=== PATIENT | male | born 1965 | race Caucasian/White ===

== ENCOUNTER 2024-03-01 18:01 | Emergency (ER) | payer MEDICAID ==
[2024-03-01] MEDS: HYDROmorphone 1 MG/ML Syringe SUBCUT ONE (18:38)
[2024-03-01 19:46] LABS: BASOPHILS PERCENT AUTO 0.8 % (0.2-1.2); EOSINOPHILS ABSOLUTE AUTO 0.3 x10^3/uL (0.0-0.5); EOSINOPHILS PERCENT AUTO 5.2 % (0.0-4.0); HEMATOCRIT 42.6 % (40.0-52.0); HEMOGLOBIN 14.3 g/dL (14.0-18.0); IMMATURE GRAN ABSOLUTE AUTO 0.01 x10^3/uL (0.00-0.07); LYMPHOCYTES ABSOLUTE AUTO 2.2 x10^3/uL (1.0-4.8); LYMPHOCYTES PERCENT AUTO 43.6 % (25.0-50.0); MEAN CORPUSCULAR HGB CONC 33.6 g/dL (32.0-36.0); MEAN CORPUSCULAR VOLUME 86.4 fL (78.0-93.0); MONOCYTES ABSOLUTE AUTO 0.6 x10^3/uL (0.0-0.8); MONOCYTES PERCENT AUTO 11.2 % (2.0-11.0); PLATELET COUNT,PLT 274 x10^3/uL (130-400); RED BLOOD CELL COUNT 4.93 x10^6/uL (4.5-6.0)
[2024-03-01 20:11] LABS: A/G RATIO 0.62; ALANINE AMINOTRANSFERASE,ALT 7 U/L (16-63); ALBUMIN 2.8 g/dL (3.4-5.0); ALKALINE PHOSPHATASE 167 U/L (46-116); ASPARTATE AMNIOTRANSFERASE,AST 10 U/L (15-37); BILIRUBIN TOTAL 0.8 mg/dL (0.2-1.0); BLOOD UREA NITROGEN,BUN 12 mg/dL (7-18); CALCIUM 9.1 mg/dL (8.5-10.1); CARBON DIOXIDE,CO2 29 mmol/L (21-32); CHLORIDE,CL 105 mmol/L (98-107); CREATININE 0.8 mg/dL (0.70-1.30); EST CRCL DRUG DOSING (CG) 88.64 mL/min; GLUCOSE RANDOM 120 mg/dL (70-99); MAGNESIUM 1.9 mg/dL (1.8-2.4); POTASSIUM,K 3.8 mmol/L (3.5-5.1); PROTEIN TOTAL,TP 7.3 g/dL (6.4-8.2); SODIUM,NA 143 mmol/L (136-145); TSH ULTRASENSITIVE 2.353 uIU/mL (0.358-3.74)
[2024-03-01 20:12] LABS: ACETAMINOPHEN 0 ug/ml (10-30); ANION GAP 12.8 mmol/L (5-15); ESTIMATED GFR 101 mL/min (>=60); ETHANOL BLOOD MEDICAL < 3 mg/dL (0-3)
== END 2024-03-01 21:05 ==
LOC: VM.ED 18:01
DX: R45.6 Violent behavior (principal); Z88.5 Allergy status to narcotic agent
CPT/HCPCS: 36415; 80053; 80143; 80179; 80307; 82140; 83735; 84443; 85025; 96372; 99284; 99285; J1171

== ENCOUNTER 2024-05-27 17:48 | Inpatient (IN) | payer MEDICAID ==
[2024-05-27 18:20] LABS: HEMATOCRIT 40.4 % (40.0-52.0); HEMOGLOBIN 13.7 g/dL (14.0-18.0); MEAN CORPUSCULAR HEMOGLOBIN 28.2 pg (26.0-32.0); MEAN CORPUSCULAR HGB CONC 33.9 g/dL (32.0-36.0); MEAN CORPUSCULAR VOLUME 83.3 fL (78.0-93.0); PLATELET COUNT,PLT 414 x10^3/uL (130-400); RED BLOOD CELL COUNT 4.85 x10^6/uL (4.5-6.0)
[2024-05-27 18:23] LABS: WHITE BLOOD CELL COUNT,WBC 22.8 x10^3/uL (4.0-10.0)
[2024-05-27 18:29] LABS: INR 1.4 (0.9-1.1); PROTHROMBIN TIME 14.4 SEC (9.6-12.0); PTT,PARTIAL THROMBOPLSTIN TIME 30.3 SEC (23.5-33.2)
[2024-05-27 18:43] LABS: A/G RATIO 0.48; ALANINE AMINOTRANSFERASE,ALT 8 U/L (16-63); ALBUMIN 2.2 g/dL (3.4-5.0); ALKALINE PHOSPHATASE 121 U/L (46-116); BILIRUBIN TOTAL 0.9 mg/dL (0.2-1.0); BLOOD UREA NITROGEN,BUN 17 mg/dL (7-18); CALCIUM 8.9 mg/dL (8.5-10.1); CARBON DIOXIDE,CO2 30 mmol/L (21-32); CHLORIDE,CL 97 mmol/L (98-107); CREATININE 0.7 mg/dL (0.70-1.30); GLUCOSE RANDOM 138 mg/dL (70-99); MAGNESIUM 2.1 mg/dL (1.8-2.4); PRO B-TYPE NATRIUR PEPT,BNPPRO 1562 pg/mL (<=125); PROTEIN TOTAL,TP 6.8 g/dL (6.4-8.2); SODIUM,NA 139 mmol/L (136-145)
[2024-05-27 18:48] LABS: ANION GAP 14.7 mmol/L (5-15); ESTIMATED GFR 105 mL/min (>=60)
[2024-05-27 18:49] LABS: POTASSIUM,K 2.7 mmol/L (3.5-5.1)
[2024-05-27 18:52] LABS: ASPARTATE AMNIOTRANSFERASE,AST 10 U/L (15-37)
[2024-05-27 18:55] LABS: BAND PERCENT MAN 5 % (0-6); LYMPHOCYTES ABSOLUTE MAN 0.9 x10^3/uL (1.0-4.8); LYMPHOCYTES PERCENT MAN 4 % (25-50); MONOCYTES ABSOLUTE MAN 2.1 x10^3/uL (0.0-0.8); MONOCYTES PERCENT MAN 9 % (2-11); NEUTROPHILS ABSOLUTE MAN 19.8 x10^3/uL (1.8-7.7); PLATELET COUNT ESTIMATE INCREASED; SEG NEUTROPHILS PERCENT MAN 82 % (50-80)
[2024-05-27 19:00] LABS: C-REACTIVE PROTEIN 31.85 mg/dL (<=0.50)
[2024-05-27] MEDS: cefTRIAXone 2 GM Vial IVPUSH ONE (19:05)
[2024-05-27] MEDS: NS with KCl 40mEq 1,000 ML IV SCH (19:11)
[2024-05-27] MEDS: Azithromycin 500 MG in Sodium Chloride 0.9% 250 ML IV ONE (20:25)
[2024-05-27] MEDS: Enoxaparin 40 MG/0.4 ML Syringe SUBCUT SCH (22:03)
[2024-05-28] MEDS ORDERED: Aluminum Hydroxide/Magnesium Hydroxide/Simethicone Susp 30 ML Cup PO PRN (00:55)
[2024-05-28] MEDS ORDERED: Menthol 10%/Methyl Salicylate 15% 85 GM Tube TOP PRN (00:55)
[2024-05-28] MEDS: Morphine Oral Concentrate 20 MG/ML 30 ML Bottle PO SCH (01:45)
[2024-05-28 07:10] LABS: BASOPHILS PERCENT AUTO 0.1 % (0.2-1.2); EOSINOPHILS ABSOLUTE AUTO 0.1 x10^3/uL (0.0-0.5); EOSINOPHILS PERCENT AUTO 0.4 % (0.0-4.0); HEMATOCRIT 36.2 % (40.0-52.0); HEMOGLOBIN 12.2 g/dL (14.0-18.0); IMMATURE GRAN ABSOLUTE AUTO 0.13 x10^3/uL (0.00-0.07); LYMPHOCYTES PERCENT AUTO 5.2 % (25.0-50.0); MEAN CORPUSCULAR HEMOGLOBIN 28.6 pg (26.0-32.0); MEAN CORPUSCULAR HGB CONC 33.7 g/dL (32.0-36.0); MONOCYTES ABSOLUTE AUTO 1.4 x10^3/uL (0.0-0.8); MONOCYTES PERCENT AUTO 7.1 % (2.0-11.0); NEUTROPHILS ABSOLUTE AUTO 16.7 x10^3/uL (1.8-7.7); NEUTROPHILS PERCENT AUTO 86.5 % (50.0-80.0); PLATELET COUNT,PLT 400 x10^3/uL (130-400); RED BLOOD CELL COUNT 4.26 x10^6/uL (4.5-6.0)
[2024-05-28 07:19] LABS: CALCIUM 8.4 mg/dL (8.5-10.1); CREATININE 0.5 mg/dL (0.70-1.30); EST CRCL DRUG DOSING (CG) 123.07 mL/min; POTASSIUM,K 3.1 mmol/L (3.5-5.1)
[2024-05-28 07:23] LABS: ANION GAP 13.1 mmol/L (5-15)
[2024-05-28 07:29] LABS: WHITE BLOOD CELL COUNT,WBC 19.2 x10^3/uL (4.0-10.0)
[2024-05-28] MEDS: Bisacodyl 5 MG Tab PO SCH (09:00)
[2024-05-28] MEDS: Sennosides/Docusate Sodium 50-8.6 MG Tab PO SCH (09:00)
[2024-05-28] MEDS: Polyethylene Glycol 3350 Powder 17 GM Packet PO SCH (09:00)
[2024-05-28] MEDS: risperiDONE 1 MG Tab PO SCH (11:15)
[2024-05-28] MEDS: Potassium Bicarbonate/Cit Ac 10 MEQ Effervescent Tab PO SCH (11:27)
[2024-05-28] MEDS: cefTRIAXone 2 GM Vial IVPUSH SCH (20:28)
[2024-05-28] MEDS: Sodium Chloride 0.9% 10 ML Syringe FLUSH PRN (20:38)
[2024-05-28] MEDS: Lactated Ringers 1,000 ML IV SCH (20:39)
[2024-05-28] MEDS: Azithromycin 500 MG in Sodium Chloride 0.9% 250 ML IV SCH (20:46)
[2024-05-29 06:57] LABS: BASOPHILS PERCENT AUTO 0.1 % (0.2-1.2); EOSINOPHILS ABSOLUTE AUTO 0.3 x10^3/uL (0.0-0.5); EOSINOPHILS PERCENT AUTO 2.3 % (0.0-4.0); HEMATOCRIT 33.5 % (40.0-52.0); HEMOGLOBIN 11.2 g/dL (14.0-18.0); IMMATURE GRAN ABSOLUTE AUTO 0.22 x10^3/uL (0.00-0.07); LYMPHOCYTES ABSOLUTE AUTO 1.6 x10^3/uL (1.0-4.8); MEAN CORPUSCULAR HEMOGLOBIN 28.7 pg (26.0-32.0); MEAN CORPUSCULAR HGB CONC 33.4 g/dL (32.0-36.0); MEAN CORPUSCULAR VOLUME 85.9 fL (78.0-93.0); MONOCYTES ABSOLUTE AUTO 1.3 x10^3/uL (0.0-0.8); MONOCYTES PERCENT AUTO 9.1 % (2.0-11.0); NEUTROPHILS ABSOLUTE AUTO 10.7 x10^3/uL (1.8-7.7); NEUTROPHILS PERCENT AUTO 75.9 % (50.0-80.0); PLATELET COUNT,PLT 393 x10^3/uL (130-400); WHITE BLOOD CELL COUNT,WBC 14.1 x10^3/uL (4.0-10.0)
[2024-05-29 07:09] LABS: CALCIUM 8.7 mg/dL (8.5-10.1); CREATININE 0.5 mg/dL (0.70-1.30); EST CRCL DRUG DOSING (CG) 124.99 mL/min; POTASSIUM,K 3.8 mmol/L (3.5-5.1)
[2024-05-29 07:12] LABS: ANION GAP 10.8 mmol/L (5-15)
[2024-05-29] MEDS: RISPERIDONE 1 MG/ML PO SCH (08:49)
[2024-05-30 08:12] LABS: BASOPHILS PERCENT AUTO 0.3 % (0.2-1.2); CALCIUM 8.8 mg/dL (8.5-10.1); CREATININE 0.6 mg/dL (0.70-1.30); EOSINOPHILS ABSOLUTE AUTO 0.3 x10^3/uL (0.0-0.5); EOSINOPHILS PERCENT AUTO 3.1 % (0.0-4.0); EST CRCL DRUG DOSING (CG) 104.16 mL/min; HEMATOCRIT 37.3 % (40.0-52.0); HEMOGLOBIN 12.7 g/dL (14.0-18.0); IMMATURE GRAN ABSOLUTE AUTO 0.34 x10^3/uL (0.00-0.07); LYMPHOCYTES ABSOLUTE AUTO 1.8 x10^3/uL (1.0-4.8); MEAN CORPUSCULAR HEMOGLOBIN 28.9 pg (26.0-32.0); MEAN CORPUSCULAR VOLUME 84.8 fL (78.0-93.0); MONOCYTES PERCENT AUTO 10.2 % (2.0-11.0); NEUTROPHILS PERCENT AUTO 63.8 % (50.0-80.0); PLATELET COUNT,PLT 333 x10^3/uL (130-400); WHITE BLOOD CELL COUNT,WBC 9.4 x10^3/uL (4.0-10.0)
[2024-05-30] MEDS: Bisacodyl 10 MG Supp RECTAL PRN (10:39)
[2024-05-30] MEDS: Menthol/Zinc Oxide Ointment 3.5 GM Tube TOP SCH (20:10)
[2024-05-31 07:56] LABS: BASOPHILS PERCENT AUTO 0.3 % (0.2-1.2); EOSINOPHILS ABSOLUTE AUTO 0.2 x10^3/uL (0.0-0.5); EOSINOPHILS PERCENT AUTO 2.5 % (0.0-4.0); HEMATOCRIT 35.5 % (40.0-52.0); HEMOGLOBIN 11.8 g/dL (14.0-18.0); IMMATURE GRAN ABSOLUTE AUTO 0.41 x10^3/uL (0.00-0.07); LYMPHOCYTES ABSOLUTE AUTO 1.9 x10^3/uL (1.0-4.8); LYMPHOCYTES PERCENT AUTO 20.3 % (25.0-50.0); MEAN CORPUSCULAR HEMOGLOBIN 28.4 pg (26.0-32.0); MEAN CORPUSCULAR HGB CONC 33.2 g/dL (32.0-36.0); MEAN CORPUSCULAR VOLUME 85.3 fL (78.0-93.0); MONOCYTES ABSOLUTE AUTO 1.1 x10^3/uL (0.0-0.8); MONOCYTES PERCENT AUTO 12.1 % (2.0-11.0); NEUTROPHILS ABSOLUTE AUTO 5.6 x10^3/uL (1.8-7.7); NEUTROPHILS PERCENT AUTO 60.3 % (50.0-80.0); PLATELET COUNT,PLT 405 x10^3/uL (130-400); RED BLOOD CELL COUNT 4.16 x10^6/uL (4.5-6.0); WHITE BLOOD CELL COUNT,WBC 9.2 x10^3/uL (4.0-10.0)
[2024-05-31 08:19] LABS: CALCIUM 8.8 mg/dL (8.5-10.1); CREATININE 0.6 mg/dL (0.70-1.30); EST CRCL DRUG DOSING (CG) 107.78 mL/min; POTASSIUM,K 3.6 mmol/L (3.5-5.1)
[2024-05-31 08:20] LABS: ANION GAP 9.6 mmol/L (5-15)
== END 2024-06-01 13:20 | DRG 871 ==
LOC: VM.ED 17:48 → VM.MS 19:27 → EEVIPCON 19:27
PROVIDERS: ADMIT Internal Medicine; ATTEND Family Medicine
DX: A41.89 Other specified sepsis (principal); J18.9 Pneumonia, unspecified organism; J69.0 Pneumonitis due to inhalation of food and vomit; Z79.1 Long term (current) use of non-steroidal anti-inflammatories (NSAID); Z88.6 Allergy status to analgesic agent; J96.01 Acute respiratory failure with hypoxia; R64 Cachexia; Z68.1 Body mass index [BMI] 19.9 or less, adult; I82.509 Chronic embolism and thrombosis of unspecified deep veins of unspecified lower extremity; Z66 Do not resuscitate; I10 Essential (primary) hypertension; K21.9 Gastro-esophageal reflux disease without esophagitis; F41.9 Anxiety disorder, unspecified; F90.9 Attention-deficit hyperactivity disorder, unspecified type; E87.6 Hypokalemia; F10.21 Alcohol dependence, in remission; G89.29 Other chronic pain; K59.00 Constipation, unspecified; Z79.899 Other long term (current) drug therapy; Z86.73 Personal history of transient ischemic attack (TIA), and cerebral infarction without residual deficits
CPT/HCPCS: 36415; 71045; 80048; 80053; 83605; 83735; 83880; 84145; 84443; 85025; 85610; 85730; 86140; 87040; 87070; 87428-QW; 92610-GN; 94760; 96365; 96375; 99223; 99223-GT; 99284; 99285-25; A9270-GY; J0456; J0696; J1650; J3480; J7050; J7120; Q3014

== ENCOUNTER 2024-12-10 10:17 | Observation (INO) | payer MEDICAID ==
[2024-12-10] MEDS ORDERED: Sodium Chloride 0.9% 10 ML Syringe FLUSH PRN (10:27)
[2024-12-10 10:40] LABS: BASOPHILS ABSOLUTE AUTO 0.0 x10^3/uL (0.0-0.2); BASOPHILS PERCENT AUTO 0.1 % (0.2-1.2); EOSINOPHILS ABSOLUTE AUTO 0.0 x10^3/uL (0.0-0.5); EOSINOPHILS PERCENT AUTO 0.0 % (0.0-4.0); IMMATURE GRAN ABSOLUTE AUTO 0.02 x10^3/uL (0.00-0.07); IMMATURE GRAN PERCENT AUTO 0.20 % (0.00-0.43); LYMPHOCYTES ABSOLUTE AUTO 0.5 x10^3/uL (1.0-4.8); LYMPHOCYTES PERCENT AUTO 4.9 % (25.0-50.0); MONOCYTES ABSOLUTE AUTO 0.6 x10^3/uL (0.0-0.8); MONOCYTES PERCENT AUTO 6.1 % (2.0-11.0); NEUTROPHILS ABSOLUTE AUTO 9.4 x10^3/uL (1.8-7.7); PLATELET COUNT,PLT 311 x10^3/uL (130-400); RED BLOOD CELL COUNT 5.39 x10^6/uL (4.5-6.0); WHITE BLOOD CELL COUNT,WBC 10.6 x10^3/uL (4.0-10.0)
[2024-12-10 10:50] LABS: NEUTROPHILS PERCENT AUTO 88.7 % (50.0-80.0)
[2024-12-10] MEDS: Ondansetron 4 MG/2 ML SDV IVPUSH ONE (10:50)
[2024-12-10 10:57] LABS: A/G RATIO 0.77; ALANINE AMINOTRANSFERASE,ALT 15 U/L (16-63); ASPARTATE AMNIOTRANSFERASE,AST 13 U/L (15-37); BILIRUBIN TOTAL 1.4 mg/dL (0.2-1.0); BLOOD UREA NITROGEN,BUN 19 mg/dL (7-18); CARBON DIOXIDE,CO2 32 mmol/L (21-32); CHLORIDE,CL 104 mmol/L (98-107); CREATININE 0.9 mg/dL (0.70-1.30); ESTIMATED GFR 98 mL/min (>=60); GLUCOSE RANDOM 164 mg/dL (70-99); POTASSIUM,K 3.7 mmol/L (3.5-5.1); PROTEIN TOTAL,TP 8.3 g/dL (6.4-8.2); SODIUM,NA 145 mmol/L (136-145)
[2024-12-10] MEDS: Iopamidol 612 MG/ML 100 ML Bottle IVPUSH ONE (11:49)
[2024-12-10 12:05] LABS: APPEARANCE,URINE CLEAR (CLEAR); GLUCOSE,URINE NEGATIVE (NEGATIVE); OCCULT BLOOD,URINE NEGATIVE (NEGATIVE)
[2024-12-10] MEDS: Lactated Ringers 1,000 ML IV ONE (14:00)
[2024-12-10] MEDS ORDERED: Ondansetron 4 MG/2 ML SDV IV PRN (15:33)
[2024-12-10] MEDS ORDERED: Naloxone 0.4 MG/ML SDV IVPUSH PRN (15:41)
[2024-12-10] MEDS: metroNIDAZOLE/Normal Saline 500 MG in Premix Bag 1 BAG IV SCH (16:17)
== END 2024-12-10 19:05 | disposition short-term general hospital (02) ==
LOC: VM.ED 10:17 → VM.MS 14:31
PROVIDERS: ADMIT Internal Medicine; ATTEND Internal Medicine
DX: K56.609 Unspecified intestinal obstruction, unspecified as to partial versus complete obstruction (principal); J96.01 Acute respiratory failure with hypoxia; K52.89 Other specified noninfective gastroenteritis and colitis; I10 Essential (primary) hypertension; K21.9 Gastro-esophageal reflux disease without esophagitis; F41.9 Anxiety disorder, unspecified; Z79.899 Other long term (current) drug therapy
CPT/HCPCS: 36415; 43752; 71045; 74018; 74177; 80053; 81003; 82271; 83690; 85025; 86140; 96361; 96374; 96375; 96376; 99285-25; A4315; J0696; J1836; J2270; J2405; J3490; J7030; J7120; Q9967

== ENCOUNTER 2024-12-16 16:29 | Inpatient (IN) | payer SELFPAY ==
[2024-12-16 16:52] LABS: BASOPHILS ABSOLUTE AUTO 0.0 x10^3/uL (0.0-0.2); BASOPHILS PERCENT AUTO 0.2 % (0.2-1.2); EOSINOPHILS ABSOLUTE AUTO 0.2 x10^3/uL (0.0-0.5); EOSINOPHILS PERCENT AUTO 1.8 % (0.0-4.0); IMMATURE GRAN ABSOLUTE AUTO 0.02 x10^3/uL (0.00-0.07); IMMATURE GRAN PERCENT AUTO 0.20 % (0.00-0.43); LYMPHOCYTES ABSOLUTE AUTO 0.9 x10^3/uL (1.0-4.8); LYMPHOCYTES PERCENT AUTO 7.3 % (25.0-50.0); MONOCYTES ABSOLUTE AUTO 0.9 x10^3/uL (0.0-0.8); MONOCYTES PERCENT AUTO 7.5 % (2.0-11.0); NEUTROPHILS ABSOLUTE AUTO 9.7 x10^3/uL (1.8-7.7); NEUTROPHILS PERCENT AUTO 83.0 % (50.0-80.0); PLATELET COUNT,PLT 231 x10^3/uL (130-400); RED BLOOD CELL COUNT 4.98 x10^6/uL (4.5-6.0); WHITE BLOOD CELL COUNT,WBC 11.7 x10^3/uL (4.0-10.0)
[2024-12-16] MEDS ORDERED: Sodium Chloride 0.9% 10 ML Syringe FLUSH PRN (17:08)
[2024-12-16 17:13] LABS: A/G RATIO 0.70; ALANINE AMINOTRANSFERASE,ALT 37 U/L (16-63); ASPARTATE AMNIOTRANSFERASE,AST 16 U/L (15-37); BILIRUBIN TOTAL 1.7 mg/dL (0.2-1.0); BLOOD UREA NITROGEN,BUN 14 mg/dL (7-18); CARBON DIOXIDE,CO2 30 mmol/L (21-32); CHLORIDE,CL 102 mmol/L (98-107); CREATININE 0.8 mg/dL (0.70-1.30); ESTIMATED GFR 101 mL/min (>=60); GLUCOSE RANDOM 154 mg/dL (70-99); POTASSIUM,K 3.0 mmol/L (3.5-5.1); PROTEIN TOTAL,TP 6.8 g/dL (6.4-8.2); SODIUM,NA 141 mmol/L (136-145)
[2024-12-16] MEDS ORDERED: Menthol 10%/Methyl Salicylate 15% 85 GM Tube TOP PRN (20:19)
[2024-12-16] MEDS ORDERED: Sennosides/Docusate Sodium 50-8.6 MG Tab PO PRN (20:19)
[2024-12-16] MEDS: Sennosides/Docusate Sodium 50-8.6 MG Tab PO SCH (21:52)
[2024-12-16] MEDS: D5 1/2 NS w/ 40 mEq/L KCl 1,000 ML IV SCH (22:01)
[2024-12-16] MEDS: risperiDONE Solution 1 MG/1 ML 30 ML Bottle PO SCH (22:02)
[2024-12-16] MEDS: Morphine Oral Concentrate 20 MG/ML 30 ML Bottle PO SCH (22:02)
[2024-12-17] MEDS: metroNIDAZOLE/Normal Saline 500 MG in Premix Bag 1 BAG IV SCH ×2 (00:14→18:40)
[2024-12-17] MEDS: Heparin Sodium 5,000 Units/ML Vial SUBCUT SCH (00:16)
[2024-12-17 06:56] LABS: BASOPHILS ABSOLUTE AUTO 0.1 x10^3/uL (0.0-0.2); BASOPHILS PERCENT AUTO 0.7 % (0.2-1.2); EOSINOPHILS ABSOLUTE AUTO 0.2 x10^3/uL (0.0-0.5); EOSINOPHILS PERCENT AUTO 1.7 % (0.0-4.0); IMMATURE GRAN ABSOLUTE AUTO 0.02 x10^3/uL (0.00-0.07); IMMATURE GRAN PERCENT AUTO 0.20 % (0.00-0.43); LYMPHOCYTES ABSOLUTE AUTO 1.3 x10^3/uL (1.0-4.8); LYMPHOCYTES PERCENT AUTO 10.7 % (25.0-50.0); MONOCYTES ABSOLUTE AUTO 0.9 x10^3/uL (0.0-0.8); MONOCYTES PERCENT AUTO 7.6 % (2.0-11.0); NEUTROPHILS ABSOLUTE AUTO 9.2 x10^3/uL (1.8-7.7); NEUTROPHILS PERCENT AUTO 79.1 % (50.0-80.0); RED BLOOD CELL COUNT 4.10 x10^6/uL (4.5-6.0); WHITE BLOOD CELL COUNT,WBC 11.7 x10^3/uL (4.0-10.0)
[2024-12-17 07:00] LABS: PLATELET COUNT,PLT 135 x10^3/uL (130-400)
[2024-12-17 07:06] LABS: A/G RATIO 0.72; ALANINE AMINOTRANSFERASE,ALT 22.0 U/L (16-63); ASPARTATE AMNIOTRANSFERASE,AST 13.0 U/L (15-37); BILIRUBIN TOTAL 1.2 mg/dL (0.2-1.0); BLOOD UREA NITROGEN,BUN 10.0 mg/dL (7-18); CARBON DIOXIDE,CO2 31.0 mmol/L (21-32); CHLORIDE,CL 104.0 mmol/L (98-107); CREATININE 0.5 mg/dL (0.70-1.30); EST CRCL DRUG DOSING (CG) 123.56 mL/min; GLUCOSE RANDOM 167.0 mg/dL (70-99); POTASSIUM,K 3.5 mmol/L (3.5-5.1); PROTEIN TOTAL,TP 5.5 g/dL (6.4-8.2); SODIUM,NA 141.0 mmol/L (136-145)
[2024-12-17 07:08] LABS: ESTIMATED GFR 117.0 mL/min (>=60)
[2024-12-17] MEDS ORDERED: Calcium Gluc in NaCl, ISO-OSM 1,000 MG in Premix Bag 1 BAG IV ONE (10:37)
[2024-12-17 10:58] LABS: HCO3 VENOUS,POC 27 mmol/L (22-29); O2 SATURATION VENOUS,POC 96 %; PCO2 VENOUS,POC 34 mmHg (41-51); PH VENOUS,POC 7.51 pH (7.32-7.43); PO2 VENOUS,POC 74 mmHg
[2024-12-17] MEDS ORDERED: metroNIDAZOLE/Normal Saline 500 MG in Premix Bag 1 BAG IV SCH (11:00)
[2024-12-17] MEDS: Morphine Oral Concentrate 20 MG/ML 30 ML Bottle PO PRN (21:32)
[2024-12-18 06:59] LABS: BASOPHILS ABSOLUTE AUTO 0.0 x10^3/uL (0.0-0.2); BASOPHILS PERCENT AUTO 0.4 % (0.2-1.2); EOSINOPHILS ABSOLUTE AUTO 0.5 x10^3/uL (0.0-0.5); EOSINOPHILS PERCENT AUTO 6.3 % (0.0-4.0); IMMATURE GRAN ABSOLUTE AUTO 0.01 x10^3/uL (0.00-0.07); IMMATURE GRAN PERCENT AUTO 0.10 % (0.00-0.43); LYMPHOCYTES ABSOLUTE AUTO 2.1 x10^3/uL (1.0-4.8); LYMPHOCYTES PERCENT AUTO 29.1 % (25.0-50.0); MONOCYTES ABSOLUTE AUTO 0.9 x10^3/uL (0.0-0.8); MONOCYTES PERCENT AUTO 12.7 % (2.0-11.0); NEUTROPHILS ABSOLUTE AUTO 3.7 x10^3/uL (1.8-7.7); NEUTROPHILS PERCENT AUTO 51.4 % (50.0-80.0); PLATELET COUNT,PLT 251 x10^3/uL (130-400); RED BLOOD CELL COUNT 4.00 x10^6/uL (4.5-6.0); WHITE BLOOD CELL COUNT,WBC 7.2 x10^3/uL (4.0-10.0)
[2024-12-18 07:22] LABS: A/G RATIO 0.70; ALANINE AMINOTRANSFERASE,ALT 17 U/L (16-63); BILIRUBIN TOTAL 0.9 mg/dL (0.2-1.0); BLOOD UREA NITROGEN,BUN 10 mg/dL (7-18); CARBON DIOXIDE,CO2 30 mmol/L (21-32); CHLORIDE,CL 106 mmol/L (98-107); CREATININE 0.7 mg/dL (0.70-1.30); EST CRCL DRUG DOSING (CG) 88.27 mL/min; GLUCOSE RANDOM 104 mg/dL (70-99); POTASSIUM,K 3.2 mmol/L (3.5-5.1); PROTEIN TOTAL,TP 5.6 g/dL (6.4-8.2); SODIUM,NA 143 mmol/L (136-145)
[2024-12-18 07:34] LABS: ASPARTATE AMNIOTRANSFERASE,AST < 10 U/L (15-37); ESTIMATED GFR 105 mL/min (>=60)
[2024-12-18] MEDS ORDERED: LORazepam 2 MG/ML SDV IVPUSH PRN (18:06)
[2024-12-18] MEDS ORDERED: Flumazenil 0.1 MG/ML 5 ML MDV IVPUSH PRN (18:06)
[2024-12-19 08:09] LABS: BASOPHILS ABSOLUTE AUTO 0.0 x10^3/uL (0.0-0.2); BASOPHILS PERCENT AUTO 0.8 % (0.2-1.2); EOSINOPHILS ABSOLUTE AUTO 0.3 x10^3/uL (0.0-0.5); EOSINOPHILS PERCENT AUTO 5.9 % (0.0-4.0); IMMATURE GRAN ABSOLUTE AUTO 0.01 x10^3/uL (0.00-0.07); IMMATURE GRAN PERCENT AUTO 0.20 % (0.00-0.43); LYMPHOCYTES ABSOLUTE AUTO 1.7 x10^3/uL (1.0-4.8); LYMPHOCYTES PERCENT AUTO 33.6 % (25.0-50.0); MONOCYTES ABSOLUTE AUTO 0.8 x10^3/uL (0.0-0.8); MONOCYTES PERCENT AUTO 15.6 % (2.0-11.0); NEUTROPHILS ABSOLUTE AUTO 2.3 x10^3/uL (1.8-7.7); NEUTROPHILS PERCENT AUTO 43.9 % (50.0-80.0); PLATELET COUNT,PLT 259 x10^3/uL (130-400); RED BLOOD CELL COUNT 4.05 x10^6/uL (4.5-6.0); WHITE BLOOD CELL COUNT,WBC 5.1 x10^3/uL (4.0-10.0)
[2024-12-19 08:32] LABS: A/G RATIO 0.70; ALANINE AMINOTRANSFERASE,ALT 16 U/L (16-63); BILIRUBIN TOTAL 1.0 mg/dL (0.2-1.0); BLOOD UREA NITROGEN,BUN 8 mg/dL (7-18); CARBON DIOXIDE,CO2 31 mmol/L (21-32); CHLORIDE,CL 106 mmol/L (98-107); CREATININE 0.7 mg/dL (0.70-1.30); EST CRCL DRUG DOSING (CG) 88.31 mL/min; GLUCOSE RANDOM 94 mg/dL (70-99); POTASSIUM,K 3.3 mmol/L (3.5-5.1); PROTEIN TOTAL,TP 5.6 g/dL (6.4-8.2); SODIUM,NA 143 mmol/L (136-145)
[2024-12-19 08:33] LABS: ASPARTATE AMNIOTRANSFERASE,AST < 10 U/L (15-37); ESTIMATED GFR 105 mL/min (>=60)
[2024-12-20] MEDS: Glycopyrrolate 0.2 MG/ML 2 ML SDV IVPUSH PRN (14:07)
[2024-12-20] MEDS: Miconazole 2% Top Powder 45 GM Container TOP SCH (17:17)
[2024-12-21] MEDS: Ondansetron 4 MG/2 ML SDV IVPUSH ONE (12:28)
== END 2024-12-21 13:35 | DRG 177 ==
LOC: VM.ED 16:29 → VM.MS 18:02 → OBSVTOIN 12-18 13:36
PROVIDERS: ADMIT Nurse Practitioner Family; ATTEND Nurse Practitioner Family
DX: J69.0 Pneumonitis due to inhalation of food and vomit (principal); J96.01 Acute respiratory failure with hypoxia; G93.40 Encephalopathy, unspecified; Z66 Do not resuscitate; I10 Essential (primary) hypertension; K21.9 Gastro-esophageal reflux disease without esophagitis; M54.9 Dorsalgia, unspecified; G89.29 Other chronic pain; F90.9 Attention-deficit hyperactivity disorder, unspecified type; D64.9 Anemia, unspecified; K70.9 Alcoholic liver disease, unspecified; R41.82 Altered mental status, unspecified; R56.9 Unspecified convulsions; E87.6 Hypokalemia; E83.51 Hypocalcemia; I69.319 Unspecified symptoms and signs involving cognitive functions following cerebral infarction; Z79.899 Other long term (current) drug therapy; Z98.890 Other specified postprocedural states
CPT/HCPCS: 36415; 71045; 80053; 82803; 85025; 87070; 94760; 96365; 96366; 96367; 96372; 96374; 96375; 96376; 99284; 99285-25; A9270-GY; G0378; J0696; J1644; J1836; J2270; J2405; J3480